=== PATIENT | female | born 1965 | race Caucasian/White ===

== ENCOUNTER → 2017-06-28 | Outpatient (CLI) | payer MEDICARE, OTHER | END | disposition home or self-care (01) | LOC: MRI 09:27 | DX: S12.490A Other displaced fracture of fifth cervical vertebra, initial encounter for closed fracture (principal); M51.34 Other intervertebral disc degeneration, thoracic region; X58.XXXA Exposure to other specified factors, initial encounter; Y93.89 Activity, other specified; Y92.89 Other specified places as the place of occurrence of the external cause; Y99.8 Other external cause status | CPT/HCPCS: 72141; 72146 ==

== ENCOUNTER → 2019-08-16 | Outpatient (CLI) | payer MEDICARE, OTHER ==
--- NOTE | 2019-08-16 15:42 | RAD ---
MRI of the abdomen without contrast to include a MRCP 08/16/2019 CLINICAL HISTORY: Elevated lipase. Possible lesion seen within the head of the pancreas on a recent CT scan. TECHNIQUE: Unenhanced T2-weighted axial and coronal and fat saturated T2-weighted axial, diffusion-weighted axial and inversion phase T1-weighted axial images of the abdomen were obtained. Additionally thin section fat saturated T2-weighted coronal images of the abdomen were obtained. Multiplanar 3-D MIP reconstructed images of the biliary system were obtained for an MRCP. FINDINGS: The liver, spleen, adrenal glands and kidneys are within normal limits. No abnormality of the pancreas is seen. The low-attenuation area seen on the patient's recent CT scan is not visualized on MRI. 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 The abdominal aorta tapers normally. No free fluid is seen. There is no evidence of bowel obstruction. MRCP images demonstrate the common hepatic duct, the left and right hepatic ducts and their branches and the common bile duct to be normal in caliber. No filling defect is seen. The main pancreatic duct is within normal limits. The gallbladder is slightly contracted. No filling defect is seen. IMPRESSION: Negative study. Electronically signed by: Chip Jenkins MD (08/16/2019 3:39 PM) [facility] – [place]
== END | disposition home or self-care (01) ==
LOC: MRI 08:46
PROVIDERS: ATTEND Family Medicine
DX: K82.0 Obstruction of gallbladder (principal)
CPT/HCPCS: 74181